=== PATIENT | female | born 1950 | race Caucasian/White ===

== ENCOUNTER 2022-06-30 08:04 | Outpatient (CLI) | payer MEDICARE, OTHER | END 2022-06-30 23:59 | disposition home or self-care (01) | LOC: LAB 08:04 | PROVIDERS: ATTEND Surgery | DX: Z01.812 Encounter for preprocedural laboratory examination (principal); Z20.822 Contact with and (suspected) exposure to COVID-19 ==

== ENCOUNTER 2022-07-02 07:08 | Day surgery (SDC) | payer MEDICARE, OTHER ==
[~2022-07-02 07:08] MED LIST: FENTANYL CITRATE 100 MCG/2 ML AMPUL ONE
[2022-07-02] MEDS ORDERED: PROPOFOL 200 MG/20 ML BOTTLE ONE ×2 (08:00)
[2022-07-02] MEDS ORDERED: LIDOCAINE-MPF 2% 5 ML VIAL ONE (08:00)
== END 2022-07-02 10:35 | disposition home or self-care (01) ==
LOC: DS 07:08
PROVIDERS: ATTEND Surgery
DX: R19.4 Change in bowel habit (principal); R63.4 Abnormal weight loss; K21.9 Gastro-esophageal reflux disease without esophagitis; K44.9 Diaphragmatic hernia without obstruction or gangrene; K29.50 Unspecified chronic gastritis without bleeding; B96.81 Helicobacter pylori [H. pylori] as the cause of diseases classified elsewhere; D12.3 Benign neoplasm of transverse colon; D12.4 Benign neoplasm of descending colon; D12.8 Benign neoplasm of rectum; K31.7 Polyp of stomach and duodenum; I10 Essential (primary) hypertension; E11.9 Type 2 diabetes mellitus without complications; F41.9 Anxiety disorder, unspecified; F32.9 Major depressive disorder, single episode, unspecified; Z79.899 Other long term (current) drug therapy; Z98.890 Other specified postprocedural states
CPT/HCPCS: 45385; 45380; 43239; 71045; 82962 ×2; J3490; J3010; J7040; 88313-TC; 88342; A4663